=== PATIENT | male | born 1955 | race Hispanic/Latino ===

== ENCOUNTER → 2023-04-22 | Outpatient (CLI) | payer MEDICARE ==
[~2023-04-22] MED LIST: AEC81 PO; EMPA25TA PO; FERR28CA PO; FURO20TA6 PO; METO25 PO; SEMA2PEN SQ; VITA1CAP PO; VITA200T6 PO
== END | disposition home or self-care (01) ==
LOC: SHCH 13:05
PROVIDERS: ATTEND Student in an Organized Health Care Education/Training Program
DX: I35.0 Nonrheumatic aortic (valve) stenosis (principal); R55 Syncope and collapse; Z95.2 Presence of prosthetic heart valve
CPT/HCPCS: 93306

== ENCOUNTER → 2024-01-02 | Outpatient (CLI) | payer MEDICARE ==
[2024-01-02 12:59] LABS: HEMOGLOBIN A1C 8.9 % (4.0-6.0)
[2024-01-02 13:00] LABS: CHOLESTEROL 148 mg/dL (<200); HDL CHOLESTEROL 54 mg/dL (29-71); LDL DIRECT 80 mg/dL (0-99); TRIGLYCERIDES 98 mg/dL (30-200)
== END | disposition home or self-care (01) ==
LOC: LAB 09:03
PROVIDERS: ATTEND Student in an Organized Health Care Education/Training Program
DX: E78.5 Hyperlipidemia, unspecified (principal); E11.9 Type 2 diabetes mellitus without complications; R94.31 Abnormal electrocardiogram [ECG] [EKG]; I35.0 Nonrheumatic aortic (valve) stenosis
CPT/HCPCS: 36415; 80061; 83036